=== PATIENT | female | born 1970 | race Caucasian/White ===

== ENCOUNTER 2019-12-24 15:04 | Emergency (ER) | payer BC ==
--- NOTE | 2019-12-24 15:19 | EDM.PDOC ---
ED HPI GENERAL MEDICAL PROBLEM - General Chief Complaint: Skin Complaint Stated Complaint: INFECTION IN HAND AND BACK Time Seen by Provider: 12/24/19 15:18 Source of Information: Reports: Patient History Limitations: Reports: No Limitations - History of Present Illness INITIAL COMMENTS - FREE TEXT/NARRATIVE: HISTORY AND PHYSICAL: History of present illness: Patient is a 49-year-old female presents to the ED with concern of abscess on her back. Patient states she was seen by her PCP at [place] yesterday and had an abscess I&D and packed on her right upper back. She states this morning she developed an abscess to her left upper back adjacent to this. She called her PCP and was advised to be seen in the ED for IV antibiotics. Review of systems: As per history of present illness and below otherwise all systems reviewed and negative. Past medical history: As per history of present illness and as reviewed below otherwise noncontributory. Surgical history: As per history of present illness and as reviewed below otherwise noncontributory. Social history: No reported history of drug or alcohol abuse. Family history: As per history of present illness and as reviewed below otherwise noncontributory. Physical exam: General: Patient sitting comfortably in no acute distress and nontoxic appearing HEENT: Atraumatic, normocephalic, pupils reactive, negative for conjunctival pallor or scleral icterus, mucous membranes moist, throat clear, neck supple, nontender, trachea midline. No meningeal signs. Lungs: Clear to auscultation, breath sounds equal bilaterally, chest nontender. Heart: S1S2, regular, negative for clicks, rubs, or overt murmur. Abdomen: Soft, nondistended, nontender. Negative for masses or hepatosplenomegaly. Negative for costovertebral tenderness. No rigidity, rebound , guarding. Pelvis: Stable nontender. Genitourinary: Deferred. Rectal: Deferred. Skin: There is a a 4cm open incision to the right upper back in the thoracic area with packing in place. There is slight erythema and a nodule felt to the left upper back just adjacent to the incision. No fluctuance appreciated. Extremities: Atraumatic, negative for cords or calf pain. Neurovascular unremarkable. Neuro: Awake, alert, oriented. Cranial nerves II through XII unremarkable. Cerebellum unremarkable. Motor and sensory unremarkable throughout. Exam nonfocal. Notes: Dr. Wallace evaluated patient in the ED. She will have patient follow up with her in her clinic on Saturday. Diagnostics: CBC, CMP, Lactate, Blood culture x 2, Soft tissue US Therapeutics: 1g Vancomycin IV Prescriptions: Clindamycin Impression: Abscess and cellulitis Plan: Take antibiotic as instructed Follow up with Dr. Wallace on Saturday (12/28/2019), please call number provided to schedule an appointment Return to ED as needed as discussed Definitive disposition and diagnosis as appropriate pending reevaluation and review of above. - Related Data Allergies Allergy/AdvReac Type Severity Reaction Status Date / Time NSAIDS (Non-Steroidal Allergy Other Verified 12/24/19 16:27 Anti-Inflamma Home Meds: Home Meds Amoxicillin/Clavulanate K [Augmentin 875-125 MG] 1 tab PO Q12HR 12/24/19 [ History] DULoxetine [Cymbalta] 30 mg PO BEDTIME 12/24/19 [History] DULoxetine [Cymbalta] 60 mg PO DAILY 12/24/19 [History] Metoprolol Succinate 100 mg PO DAILY 12/24/19 [History] Sulfamethoxazole/Trimethoprim [Sulfamethoxazole-Tmp Ds Tablet] 1 tab PO BID [History] amLODIPine [Norvasc] 10 mg PO DAILY 12/24/19 [History] clindamycin HCL [Cleocin] 450 mg PO QID 7 Days #28 cap 12/24/19 [Rx] hydroCHLOROthiazide [Hydrochlorothiazide] 1 tab PO DAILY 12/24/19 [History] lisinopriL [Lisinopril] 20 mg PO BID 12/24/19 [History] oxyCODONE HCl/Acetaminophen [Oxycodone-Acetaminophen 5-325] 12/24/19 [History] ED ROS GENERAL - Review of Systems Review Of Systems: Comprehensive ROS is negative, except as noted in HPI. ED EXAM, SKIN/RASH Exam: See Below (see dictation) Course - Vital Signs Last Recorded V/S: Last Vital Signs Temp 98.3 F 12/24/19 15:16 Pulse 104 H 12/24/19 15:16 Resp 20 12/24/19 15:16 BP 155/65 H 12/24/19 15:16 Pulse Ox 96 12/24/19 15:16 - Orders/Labs/Meds Orders: Active Orders 24 hr Category Date Time Status CULTURE BLOOD [BC] Stat Lab 12/24/19 16:45 Received CULTURE BLOOD [] Stat Lab 12/24/19 16:55 Received Sodium Chloride 0.9% [Saline Flush] Med 12/24/19 15:41 Active 10 ml FLUSH ASDIRECTED PRN Sodium Chloride 0.9% [Saline Flush] Med 12/24/19 15:41 Active 2.5 ml FLUSH ASDIRECTED PRN Blood Culture x2 Reflex Set [OM.PC] Stat Oth 12/24/19 15:42 Ordered Saline Lock Insert [OM.PC] Stat Oth 12/24/19 15:41 Ordered Medication Orders Sodium Chloride (Saline Flush) 10 ml FLUSH ASDIRECTED PRN PRN Reason: Keep Vein Open Sodium Chloride (Saline Flush) 2.5 ml FLUSH ASDIRECTED PRN PRN Reason: Keep Vein Open Labs: Laboratory Tests 12/24/19 12/24/19 12/24/19 Range/Units 16:08 16:08 16:08 WBC 13.48 H (4.0-11.0) K/uL RBC 4.43 (4.30-5.90) M/uL Hgb 14.3 (12.0-16.0) g/dL Hct 40.1 (36.0-46.0) % MCV 90.5 (80.0-98.0) fL MCH 32.3 H (27.0-32.0) pg MCHC 35.7 (31.0-37.0) g/dL RDW Std Deviation 43.0 (28.0-62.0) fl RDW Coeff of Yosfe 13 (11.0-15.0) % Plt Count 245 (150-400) K/uL MPV 10.00 (7.40-12.00) fL Neut % (Auto) 78.0 (48.0-80.0) % Lymph % (Auto) 14.1 L (16.0-40.0) % Iron % (Auto) 6.0 (0.0-15.0) % Eos % (Auto) 1.8 (0.0-7.0) % Baso % (Auto) 0.1 (0.0-1.5) % Neut # (Auto) 10.5 H (1.4-5.7) K/uL Lymph # (Auto) 1.9 (0.6-2.4) K/uL Iron # (Auto) 0.8 (0.0-0.8) K/uL Eos # (Auto) 0.2 (0.0-0.7) K/uL Baso # (Auto) 0.0 (0.0-0.1) K/uL Nucleated RBC % 0.0 /100WBC Nucleated RBCs # 0 K/uL Lactate 1.3 (0.20-2.00) mmol/L Sodium 134 L (136-145) mmol/L Potassium 4.1 (3.5-5.1) mmol/L Chloride 100 (98-107) mmol/L Carbon Dioxide 21.8 (21.0-32.0) mmol/L BUN 14 (7.0-18.0) mg/dL Creatinine 1.0 (0.6-1.0) mg/dL Est Cr Clr Drug Dosing 59.41 mL/min Estimated GFR (MDRD) 59.2 ml/min Glucose 117 H (74-106) mg/dL Calcium 9.5 (8.5-10.1) mg/dL Total Bilirubin 0.5 (0.2-1.0) mg/dL AST 24 (15-37) IU/L ALT 48 (14-63) IU/L Alkaline Phosphatase 105 (46-116) U/L Total Protein 7.7 (6.4-8.2) g/dL Albumin 3.4 (3.4-5.0) g/dL Globulin 4.3 H (2.6-4.0) g/dL Albumin/Globulin Ratio 0.8 L (0.9-1.6) Meds: Medications Generic Name Dose Route Start Last Admin Trade Name Freq PRN Reason Stop Dose Admin Sodium Chloride 10 ml 12/24/19 15:41 Saline Flush FLUSH ASDIRECTED PRN Keep Vein Open Sodium Chloride 2.5 ml 12/24/19 15:41 Saline Flush FLUSH ASDIRECTED PRN Keep Vein Open Discontinued Medications Generic Name Dose Route Start Last Admin Trade Name Freq PRN Reason Stop Dose Admin Acetaminophen 1,000 mg 12/24/19 16:25 12/24/19 16:26 Tylenol Extra Strength PO 12/24/19 16:26 1,000 mg ONETIME ONE Administration Acetaminophen Confirm 12/24/19 16:23 12/24/19 16:35 Tylenol Extra Strength Administered 12/24/19 16:24 Not Given Dose 1,000 mg .ROUTE .STK-MED ONE Sodium Chloride 1,000 mls @ 999 mls/hr 12/24/19 15:43 12/24/19 16:20 Normal Saline IV 12/24/19 16:43 999 mls/hr STAT ONE Administration Vancomycin HCl 1.25 gm/ Sodium 250 mls @ 167 mls/hr 12/24/19 16:21 12/24/19 17:38 Chloride IV 12/24/19 17:50 Not Given ONETIME ONE Sodium Chloride Confirm 12/24/19 17:21 12/24/19 17:41 Normal Saline (Advbag) Administered 12/24/19 17:22 Not Given Dose 250 mls @ as directed .ROUTE .STK-MED ONE Vancomycin HCl 1 gm/ Sodium 250 mls @ 166 mls/hr 12/24/19 17:39 12/24/19 17: 40 Chloride IV 12/24/19 19:09 166 mls/hr ONETIME ONE Administration Ketorolac Tromethamine 30 mg 12/24/19 16:10 12/24/19 16:35 Toradol IVPUSH 12/24/19 16:11 Not Given ONETIME ONE Vancomycin HCl Confirm 12/24/19 17:20 12/24/19 17:42 Vancocin Administered 12/24/19 17:21 Not Given Dose 1 gm .ROUTE .STK-MED ONE Departure - Departure Time of Disposition: 18:59 Disposition: Home, Self-Care 01 Condition: Good Clinical Impression: Abscess - Discharge Information Prescriptions: clindamycin HCL [Cleocin] 450 mg PO QID 7 Days #28 cap Instructions: Skin Abscess, [id number] Referrals: Elyssa Delgado DO [Primary Care Provider] - Forms: ED Department Discharge Additional Instructions: The following information is given to patients seen in the emergency department who are being discharged to home. This information is to outline your options for follow-up care. We provide all patients seen in our emergency department with a follow-up referral. The need for follow-up, as well as the timing and circumstances, are variable depending upon the specifics of your emergency department visit. If you don't have a primary care physician on staff, we will provide you with a referral. We always advise you to contact your personal physician following an emergency department visit to inform them of the circumstance of the visit and for follow-up with them and/or the need for any referrals to a consulting specialist. The emergency department will also refer you to a specialist when appropriate. This referral assures that you have the opportunity for follow-up care with a specialist. All of these measure are taken in an effort to provide you with optimal care, which includes your follow-up. Under all circumstances we always encourage you to contact your private physician who remains a resource for coordinating your care. When calling for follow-up care, please make the office aware that this follow-up is from your recent emergency room visit. If for any reason you are refused follow-up, please contact the [facility] Emergency Department at and asked to speak to the emergency department charge nurse. [facility] Specialty Care - General Surgery Professional Building [address] [place] [address], [address] [place] [address] Take antibiotic as instructed Follow up with Dr. Wallace on Saturday (12/28/2019), please call number provided to schedule an appointment Return to ED as needed as discussed Sepsis Event Note - Focused Exam Vital Signs: Vital Signs Temp Pulse Resp BP Pulse Ox 12/24/19 15:16 98.3 F 104 H 20 155/65 H 96 Date Exam was Performed: 12/24/19 Time Exam was Performed: 19:22 - My Orders Last 24 Hours: My Active Orders 12/24/19 15:41 Sodium Chloride 0.9% [Saline Flush] 10 ml FLUSH ASDIRECTED PRN Sodium Chloride 0.9% [Saline Flush] 2.5 ml FLUSH ASDIRECTED PRN Saline Lock Insert [OM.PC] Stat 12/24/19 15:42 Blood Culture x2 Reflex Set [OM.PC] Stat 12/24/19 16:45 CULTURE BLOOD [BC] Stat 12/24/19 16:55 CULTURE BLOOD [BC] Stat - Assessment/Plan Last 24 Hours: My Active Orders 12/24/19 15:41 Sodium Chloride 0.9% [Saline Flush] 10 ml FLUSH ASDIRECTED PRN Sodium Chloride 0.9% [Saline Flush] 2.5 ml FLUSH ASDIRECTED PRN Saline Lock Insert [OM.PC] Stat 12/24/19 15:42 Blood Culture x2 Reflex Set [OM.PC] Stat 12/24/19 16:45 CULTURE BLOOD [BC] Stat 12/24/19 16:55 CULTURE BLOOD [BC] Stat
[2019-12-24] MEDS ORDERED: Sodium Chloride 0.9% 2.5 ML Syringe FLUSH PRN (15:41)
[2019-12-24] MEDS ORDERED: Sodium Chloride 0.9% 10 ML Syringe FLUSH PRN (15:41)
[2019-12-24] MEDS ORDERED: Sodium Chloride 0.9% 1,000 ML IV ONE (15:43)
[2019-12-24] MEDS: Ketorolac 30 MG/ML SDV IVPUSH ONE ×2 (16:19→16:35)
[2019-12-24] MEDS ORDERED: Acetaminophen 500 MG Tab ONE (16:23)
[2019-12-24] MEDS ORDERED: Acetaminophen 500 MG Tab PO ONE (16:25)
[2019-12-24 16:45] LABS: CARBON DIOXIDE,CO2 21.8 mmol/L (21.0-32.0); POTASSIUM,K 4.1 mmol/L (3.5-5.1)
[2019-12-24] MEDS: Sodium Chloride 0.9% 250 ML ONE ×2 (17:31→17:41)
[2019-12-24] MEDS: Vancomycin 1 GM AdvVial ONE ×2 (17:31→17:42)
--- NOTE | 2019-12-24 18:55 | US ---
Chest: Real-time images were obtained of the mid back region. No focal fluid collections are seen to indicate a definite abscess. Very minimal hypoechoic area is seen measuring 7 mm likely representing residual change from previous procedure. Impression: 1. 7 mm finding as noted above. Nothing is seen to indicate residual abscess. If patient has continued worsening symptoms, follow-up study could then be considered. Diagnostic code #2 This report was dictated in [place] Standard Time
--- NOTE | 2019-12-25 07:42 | PCM.CONS ---
H&P History of Present Illness - General Date of Service: 12/25/19 Source of Information: Patient History Limitations: Reports: No Limitations - History of Present Illness Initial Comments - Free Text/Narative: Patient had abscess drained at her PCP office yesterday. Overnight she has noticed some redness just to the left of this area. She denies any systemic fevers or chills. She was given antibiotics as an outpatient but has not been taking these as they make her feel unwell. - Related Data Allergies/Adverse Reactions: Allergies Allergy/AdvReac Type Severity Reaction Status Date / Time NSAIDS (Non-Steroidal Allergy Other Verified 12/24/19 16:27 Anti-Inflamma Home Medications: Home Meds Amoxicillin/Clavulanate K [Augmentin 875-125 MG] 1 tab PO Q12HR 12/24/19 [ History] DULoxetine [Cymbalta] 30 mg PO BEDTIME 12/24/19 [History] DULoxetine [Cymbalta] 60 mg PO DAILY 12/24/19 [History] Metoprolol Succinate 100 mg PO DAILY 12/24/19 [History] Sulfamethoxazole/Trimethoprim [Sulfamethoxazole-Tmp Ds Tablet] 1 tab PO BID [History] amLODIPine [Norvasc] 10 mg PO DAILY 12/24/19 [History] clindamycin HCL [Cleocin] 450 mg PO QID 7 Days #28 cap 12/24/19 [Rx] hydroCHLOROthiazide [Hydrochlorothiazide] 1 tab PO DAILY 12/24/19 [History] lisinopriL [Lisinopril] 20 mg PO BID 12/24/19 [History] oxyCODONE HCl/Acetaminophen [Oxycodone-Acetaminophen 5-325] 12/24/19 [History] Past Medical History Cardiovascular History: Reports: Hypertension Genitourinary History: Reports: Renal Calculus 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 Exam - Exam Exam: See Below - Vital Signs Vital Signs: Last Vital Signs Temp 36.8 C 12/24/19 15:16 Pulse 103 H 12/24/19 19:25 Resp 16 12/24/19 19:25 BP 95/78 12/24/19 19:25 Pulse Ox 95 12/24/19 19:25 Weight: 95.254 kg - Exam Quality Assessment: Supplemental Oxygen General: Alert, Oriented HEENT: Conjunctiva Clear, Mucosa Moist & [place], Posterior Pharynx Clear Neck: Supple Lungs: Normal Respiratory Effort Cardiovascular: Regular Rate Back Exam: Normal Inspection Skin: Warm, Dry, Intact, Other (Large incision over right upper back. There is packing still inside the wound. I removed this. I explored the wound and found no evidence of tunneling or any undrained collections. 2 cm from this area on the medial edge is an area of cellulitis. No fluctuance was appreciated. ) - Patient Data Lab Results Last 24 hrs: Laboratory Results - last 24 hr 12/24/19 12/24/19 12/24/19 Range/Units 16:08 16:08 16:08 WBC 13.48 H (4.0-11.0) K/uL RBC 4.43 (4.30-5.90) M/uL Hgb 14.3 (12.0-16.0) g/dL Hct 40.1 (36.0-46.0) % MCV 90.5 (80.0-98.0) fL MCH 32.3 H (27.0-32.0) pg MCHC 35.7 (31.0-37.0) g/dL RDW Std Deviation 43.0 (28.0-62.0) fl RDW Coeff of Yosef 13 (11.0-15.0) % Plt Count 245 (150-400) K/uL MPV 10.00 (7.40-12.00) fL Neut % (Auto) 78.0 (48.0-80.0) % Lymph % (Auto) 14.1 L (16.0-40.0) % [place] % (Auto) 6.0 (0.0-15.0) % Eos % (Auto) 1.8 (0.0-7.0) % Baso % (Auto) 0.1 (0.0-1.5) % Neut # (Auto) 10.5 H (1.4-5.7) K/uL Lymph # (Auto) 1.9 (0.6-2.4) K/uL [place] # (Auto) 0.8 (0.0-0.8) K/uL Eos # (Auto) 0.2 (0.0-0.7) K/uL Baso # (Auto) 0.0 (0.0-0.1) K/uL Nucleated RBC % 0.0 /100WBC Nucleated RBCs # 0 K/uL Lactate 1.3 (0.20-2.00) mmol/L Sodium 134 L (136-145) mmol/L Potassium 4.1 (3.5-5.1) mmol/L Chloride 100 (98-107) mmol/L Carbon Dioxide 21.8 (21.0-32.0) mmol/L BUN 14 (7.0-18.0) mg/dL Creatinine 1.0 (0.6-1.0) mg/dL Est Cr Clr Drug Dosing 59.41 mL/min Estimated GFR (MDRD) 59.2 ml/min Glucose 117 H (74-106) mg/dL Calcium 9.5 (8.5-10.1) mg/dL Total Bilirubin 0.5 (0.2-1.0) mg/dL AST 24 (15-37) IU/L ALT 48 (14-63) IU/L Alkaline Phosphatase 105 (46-116) U/L Total Protein 7.7 (6.4-8.2) g/dL Albumin 3.4 (3.4-5.0) g/dL Globulin 4.3 H (2.6-4.0) g/dL Albumin/Globulin Ratio 0.8 L (0.9-1.6) Result Diagrams: 12/24/19 16:08 12/24/19 16:08 Sepsis Event Note - Evaluation Sepsis Screening Result: No Definite Risk Consult PN Assessment/Plan (1) Cellulitis SNOMED Code(s): 211475284 Code(s): L03.90 - CELLULITIS, UNSPECIFIED Problem List Initiated/Reviewed/Updated: Yes Plan: US of the new area shows no large fluid collection. This is likely an area of cellulitis. She needs to be on po antibiotics. Switch to clindamycin. Will follow up next week in clinic. If wound becomes flutuant over the weekend, I recommended she return to the ER for I and D.
== END 2019-12-24 19:17 | disposition home or self-care (01) ==
LOC: MW.ED 15:04
DX: L02.212 Cutaneous abscess of back [any part, except buttock and flank] (principal); L03.312 Cellulitis of back [any part except buttock and flank]; Z88.8 Allergy status to other drugs, medicaments and biological substances; Z79.899 Other long term (current) drug therapy
CPT/HCPCS: 76604; 80053; 83605; 85025; 87040; 96361; 96365; 96366; 99283; A9270; J3370; J7030; J7050; J1885